=== PATIENT | female | born 1985 | race Asian ===

== ENCOUNTER 2017-10-09 11:48 | Emergency (ER) | payer MEDICAID ==
[~2017-10-09] VITALS: Ht 167.6 cm; Wt 121.9 kg
[2017-10-09 11:58] VITALS: BP 131/72
== END 2017-10-09 12:45 | disposition home or self-care (01) ==
LOC: ED 12:19
DX: J18.0 Bronchopneumonia, unspecified organism (principal)
CPT/HCPCS: 71046; 99284

== ENCOUNTER 2019-10-01 18:54 | Emergency (ER) | payer MEDICAID ==
[~2019-10-01] VITALS: Ht 165.1 cm; Wt 132.5 kg
[2019-10-01 19:00] VITALS: BP 142/93
--- NOTE | 2019-10-01 20:05 | NUR ---
DC EDUCATION PROVIDED, PT DEMONSTRATES UNDERSTANDING. PT AMBULATED STEADILY TO DC WITH RN
== END 2019-10-01 20:14 | disposition home or self-care (01) ==
LOC: ED 20:03
DX: J06.9 Acute upper respiratory infection, unspecified (principal)
CPT/HCPCS: 71046; 99283

== ENCOUNTER 2019-11-03 17:27 | Emergency (ER) | payer SELFPAY ==
[~2019-11-03] VITALS: Ht 165.1 cm; Wt 129.9 kg
[2019-11-03 17:32] VITALS: BP 149/87
--- NOTE | 2019-11-03 18:32 | NUR ---
PT REPORTS SHE HAS A DENTAL APPOINTMENT ON 11/12/2019. LAST DENTAL CHECK-UP WAS ABOUT 5 YRS AGO.
== END 2019-11-03 18:37 | disposition home or self-care (01) ==
LOC: ED 18:02
DX: K08.89 Other specified disorders of teeth and supporting structures (principal)
CPT/HCPCS: 99283

== ENCOUNTER 2021-02-23 15:22 | Emergency (ER) | payer MEDICAID ==
[~2021-02-23] VITALS: Ht 165.1 cm; Wt 119.0 kg
--- NOTE | 2021-02-23 19:08 | NUR ---
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
--- NOTE | 2021-02-23 19:21 | NUR ---
PT RESTING IN ROOM, DENIES ANY CHEST DISCOMOFRT AT THIS TIME, VSS, PROVIDED WARM BLANKET.
[2021-02-23] MEDS ORDERED: AZITHROMYCIN 500 MG TABLET PO ONE (19:30)
[2021-02-23] MEDS ORDERED: CEFTRIAXONE 1,000 MG IM ONE (19:30)
[2021-02-23] MEDS ORDERED: CEFTRIAXONE 1,000 MG in DEXTROSE 5% 50 ML IVPB ONE (19:30)
[2021-02-23] MEDS ORDERED: CEFTRIAXONE 1,000 MG ONE (19:40)
[2021-02-23] MEDS ORDERED: LIDOCAINE-MPF 1%, 5ML ONE (19:51)
[2021-02-23] MEDS ORDERED: AZITHROMYCIN 500 MG TABLET ONE (19:51)
[2021-02-23 20:03] VITALS: BP 121/57
== END 2021-02-23 20:43 | disposition home or self-care (01) ==
LOC: ED 20:15
DX: U07.1 COVID-19 (principal); J12.82 Pneumonia due to coronavirus disease 2019; R94.31 Abnormal electrocardiogram [ECG] [EKG]
CPT/HCPCS: 71045; 93005; 96372; 99285; J0696; U0003; U0005